=== PATIENT | female | born 1960 | race Caucasian/White ===

== ENCOUNTER 2016-07-05 18:03 | Emergency (ER) | payer SELFPAY ==
--- NOTE | 2016-07-13 08:15 | ER ---
ADMIT: 07/05/2016 RM/LOC: [facility] MR#: [id number] [address] [place] [id number] [place] [address] Emergency Room Report SEX: F AGE: 55 : 1960 DATE: 07/05/2016 HISTORY OF PRESENT ILLNESS: She is here visiting her family. When she was cooking, had some discomfort in the back of her neck, she also felt a little nauseous, short of breath came upon her right away, and has some dizziness. 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 REVIEW OF SYSTEMS: Otherwise negative. PAST MEDICAL HISTORY: Hyperlipidemia. She has had kidney stones, tubal ligation, rectocele, and no surgery. MEDICATIONS: See T-sheet. ALLERGIES: SEE T-SHEET. SOCIAL HISTORY: Denies smoking, drugs, or alcohol. PHYSICAL EXAMINATION: GENERAL: Very pleasant, well-nourished and well- developed female. Mildly anxious. Her physical examination is otherwise negative. VITAL SIGNS: Blood pressure 166/123, heart rate 80, respirations 16, O2 sats 98%. RESPIRATIONS: No distress. CVS: Regular in rate and rhythm. SKIN: Good color, turgor. EXTREMITIES: Intact. NEURO: Oriented x4. ABDOMEN: She does have some tenderness in the epigastrium. Bowel sounds are normal. LABORATORY DATA AND IMAGING: CBC within normal limits and a white count of ADMIT: 07/05/2016 RM/LOC: [facility] MR#: [id number] [address] [place] [id number] [place] [id number] Emergency Room Report SEX: F AGE: 55 : 1960 4.8, hemoglobin 12.8, hematocrit is 36.8, glucose 102. H. pylori nonreactive. Troponin less than 0.015, TSH 1.790, and the urine is negative. EKG within normal limits, some 80 beats per minute, normal sinus. CLINICAL IMPRESSION: 1. Gastritis. 2. Cervical strain. She was given GI cocktail, which she stated it was very helpful. I gave her a script for ranitidine, 30-month supply and advised for her to take an aspirin a day, hydration and get some exercise for her neck. At this point, I do not believe that the symptoms she had were related to cardiac entity. The patient was essentially willing to follow up with primary provider. MELISA Lemon / Guru Crabtree MD / tone JOB #: [id number] CC: Guru Crabtree MD, Attending Physician Charmaine Brito MD, Family Physician
== END 2016-07-05 20:37 | disposition home or self-care (01) ==
LOC: ER 18:03
DX: S16.1XXA Strain of muscle, fascia and tendon at neck level, initial encounter (principal); K29.70 Gastritis, unspecified, without bleeding; E78.5 Hyperlipidemia, unspecified; Z87.442 Personal history of urinary calculi; X58.XXXA Exposure to other specified factors, initial encounter